=== PATIENT | male | born 1960 | race Caucasian/White ===

== ENCOUNTER 2017-06-17 22:08 | Emergency (ER) | payer OTHER ==
[~2017-06-17] VITALS: Ht 175.3 cm; Wt 127.5 kg
[2017-06-17 22:12] VITALS: BP 187/88; PULSE 72; RESP 18; TEMP 98.3; O2SAT 93
--- NOTE | 2017-06-17 22:23 | PD ---
HPI Chief Complaint: Fall Time Seen by Provider: 22:13 Travel History International Travel<30 days: No Contact w/Intl Traveler<30days: No Traveled to known affect area: No History of Present Illness HPI Patient is a 57-year-old male presents emergency department for evaluation of left shoulder and clavicle pain after a fall. The patient [place] stair and fell approximately 3-4 feet landing on his left shoulder. Has significant history of amputation of the distal two thirds of his forearm on the left from necrotizing fasciitis which was remote injury. States the pain is currently 10 out of 10 and was unrelieved by 10 mg of morphine ordered by me to EMS in the field. Denies any head injury neck injury back injury other extremity injury chest abdomen or pelvis pain. Context as above, associated signs symptoms as above, in the left proximal anterior shoulder, radiation down the arm. PFSH Past Medical History Narrative Medical Necrotizing fasciitis of left upper extremity, diabetes, Past Surgical History Narrative Surgical 's left forearm amputation, hernia repair, rotator cuff surgery. Social History Tobacco Use: No Allergies-Medications (Allergen,Severity, Reaction): Coded Allergies: lisinopril (Verified Allergy, Unknown, 06/17/17) Reported Meds & Prescriptions Reported Meds & Active Scripts Active [place] (Hydrocodone-Acetaminophen) 7.5-325 mg Tab 1 Tab PO Q6H PRN Reported Losartan (Losartan Potassium) 25 Mg Tab Unknown Dose PO DAILY Lovastatin 10 Mg Tab Unknown Dose PO DAILY Metformin (Metformin HCl) 1,000 Mg Tab 1,000 Mg PO BIDPC Review of Systems Except as stated in HPI: all other systems reviewed are Neg Physical Exam Narrative GENERAL: Well-developed well-nourished no obvious distress. SKIN: Focused skin assessment warm/dry. HEAD: Atraumatic. Normocephalic. EYES: Pupils equal and round. No scleral icterus. No injection or drainage. ENT: No nasal bleeding or discharge. Mucous membranes pink and moist. NECK: Trachea midline. No JVD. CARDIOVASCULAR: Regular rate and rhythm. No murmur appreciated. RESPIRATORY: No accessory muscle use. Clear to auscultation. Breath sounds equal bilaterally. GASTROINTESTINAL: Abdomen soft, non-tender, nondistended. Hepatic and splenic margins not palpable. MUSCULOSKELETAL: No acute obvious deformities. Obviously the patient has had left forearm amputation. No clubbing. No cyanosis. No edema. There isn't tenderness over the distal third of the left clavicle, anterior humerus. No bony deformity is noted. Patient has full passive range of motion, limited active range of motion secondary to pain. Patient has signs of adequate perfusion of the distal left upper extremity. No midline CT or L-spine tenderness. NEUROLOGICAL: Awake and alert. No obvious cranial nerve deficits. Motor grossly within normal limits. Normal speech. PSYCHIATRIC: Appropriate mood and affect; insight and judgment normal. Data Data Last Documented VS Vital Signs Date Time Temp Pulse Resp B/P (MAP) Pulse Ox O2 Delivery O2 Flow Rate FiO2 06/17/17 22:12 98.3 72 18 187/88 (121) 93 Orders Orders Chest, Pa & Lat (06/17/17 ) Shoulder, Limited(2vws) (06/17/17 ) Sling And Swathe (06/17/17 ) Ed Discharge Order (06/17/17 22:59) Acetamin-Hydrocod 325-5 Mg ([place] 5-325 (06/17/17 23:00) Mandatory Outpatient Referral (06/17/17 22:59) Sling And Swathe (06/17/17 ) [facility] Medical Decision Making Medical Screen Exam Complete: Yes Emergency Medical Condition: Yes Differential Diagnosis Humeral head fracture, clavicle fracture, fall, head injury unlikely, neck injury unlikely. Narrative Course Patient roomed emergency department, his date arrives and after discussion with the patient he endorses the patient's ability to hear history and results, discuss results with him that he does have a humeral head fracture. Given his altered anatomy may be difficult to place in a sling and swath but I have nursing to do this. The patient is and his girlfriend stated there was a step missing from the flight of stairs that he fell on, along enforcement has been here to take a statement. At this time he is stable for discharge without any indications for further workup. He was referred to orthopedic surgeon town, he states he may return back home prior to following up with a orthopedic surgeon. I discussed that he needs to do so to avoid complications of further limitation of use of his left upper extremity as well as arthritis in the future. The patients date is willing to drive him home. Diagnosis Primary Impression: Humeral head fracture Qualified Codes: S42.292A - Other displaced fracture of upper end of left humerus, initial encounter for closed fracture Referrals: Braulio Riley Jr., MD Med/Other Pt SpecificInfo: Prescription(s) given Scripts Hydrocodone-Acetaminophen ([place]) 7.5-325 mg Tab 1 TAB PO Q6H Y for PAIN, #15 TAB 0 Refills Prov: Doroteo Garcia MD 06/17/17 Disposition: 01 DISCHARGE HOME Condition: Stable Doroteo Garcia MD Jun 17, 2017 22:23
[2017-06-17] MEDS ORDERED: LOSA25TA PO (22:25)
[2017-06-17] MEDS ORDERED: LOVA10TA PO (22:25)
[2017-06-17] MEDS ORDERED: METF1000 PO (22:25)
--- NOTE | 2017-06-17 22:51 | RADRPT ---
EXAM DATE/TIME: 06/17/2017 22:33 [facility] COMPARISON: No previous studies available for comparison. INDICATIONS : Left shoulder pain, fell MEDICAL HISTORY : Hypertension. SURGICAL HISTORY : None. ENCOUNTER: Initial ACUITY: 1 day PAIN SCORE: 10/10 LOCATION: Left Shoulder FINDINGS: Two view examination of the left shoulder demonstrates a comminuted fracture of the humeral head . N o evidence of dislocation. No underlying lytic or blastic lesion is seen.. CONCLUSION: Comminuted fracture of the left humeral head and neck. Rubén Benton MD on June 17, 2017 at 22:48 Board Certified Radiologist. This report was verified electronically.
--- NOTE | 2017-06-17 22:52 | RADRPT ---
EXAM DATE/TIME: 06/17/2017 22:36 [facility] COMPARISON: No previous studies available for comparison. INDICATIONS : Chest pain, fell MEDICAL HISTORY : Hypertension. SURGICAL HISTORY : None. ENCOUNTER: Initial ACUITY: 1 day PAIN SCORE: 0/10 LOCATION: Bilateral chest FINDINGS: PA and lateral views of the chest demonstrate the lungs to be symmetrically aerated without evidence of mass, infiltrate or effusion. The cardiomediastinal contours are unremarkable. Osseous structure s are intact. CONCLUSION: Normal examination. Rubén Benton MD on June 17, 2017 at 22:49 Board Certified Radiologist. This report was verified electronically.
[2017-06-17] MEDS ORDERED: HYDR-3288 PO (22:57)
[2017-06-17] MEDS ORDERED: ACETAMINOPHEN/HYDROcodone 325 MG/5 MG TAB PO ONE (23:00)
== END 2017-06-17 23:54 | disposition home or self-care (01) ==
LOC: NEPE 22:08
DX: S42.292A Other displaced fracture of upper end of left humerus, initial encounter for closed fracture (principal); M72.6 Necrotizing fasciitis; E11.9 Type 2 diabetes mellitus without complications; W10.9XXA Fall (on) (from) unspecified stairs and steps, initial encounter; Z79.899 Other long term (current) drug therapy; Z88.8 Allergy status to other drugs, medicaments and biological substances
CPT/HCPCS: 29240; 71046; 73030